=== PATIENT | female | born 1970 | race Caucasian/White ===

== ENCOUNTER 2024-06-01 19:04 | Emergency (ER) | payer SELFPAY ==
[~2024-06-01] VITALS: Ht 167.6 cm; Wt 83.2 kg
[~2024-06-01 19:04] MED LIST: MULT-1179 PO
[2024-06-01] MEDS: ondansetron 4mg rapidly disintigrating tab PO ONE (19:40)
[2024-06-01] MEDS: acetaminophen 325mg tablet PO ONE (19:45)
[2024-06-01 19:58] LABS: BASOPHILS % (AUTO) 0.2 % (0-1); EOSINOPHILS % (AUTO) 0.1 % (0-6); HEMATOCRIT 45.8 % (35.0-45.0); HEMOGLOBIN 15.7 g/dl (12.0-16.0); LYMPHOCYTES # (AUTO) 1.7 X10'3 (1.1-4.8); LYMPHOCYTES % (AUTO) 12.7 % (21-51); MEAN CORPUSCULAR HEMOGLOBIN 30.1 PG (27.0-31.0); MEAN CORPUSCULAR HGB CONC 34.3 g/dL (33.0-36.5); MEAN CORPUSCULAR VOLUME 87.9 FL (78-98); MEAN PLATELET VOLUME 7.1 FL (7.4-10.4); MONOCYTES # (AUTO) 0.4 X10'3 (0-0.9); MONOCYTES % (AUTO) 3.2 % (2-12); NEUTROPHILS # (AUTO) 11.2 X10'3 (1.8-7.7); NEUTROPHILS % (AUTO) 83.8 % (42-75); PLATELET COUNT 401 X10'3 (140-440); RED BLOOD COUNT 5.22 X10'6 (4.20-5.60); RED CELL DISTRIBUTION WIDTH 15.1 % (11.5-14.5); WHITE BLOOD COUNT 13.3 X10'3 (4.5-11.0)
[2024-06-01 20:22] LABS: ALANINE AMINOTRANSFERASE 25 U/L (12-78); ALBUMIN 4.5 G/DL (3.4-5.0); ALKALINE PHOSPHATASE 91 IU/L (46-116); ANION GAP 13 (8-16); ASPARTATE AMINO TRANSFERASE 18 U/L (10-37); BILIRUBIN,TOTAL 0.6 MG/DL (0.1-1.0); BLOOD UREA NITROGEN 13 MG/DL (7-18); BUN/CREATININE RATIO 12.7 (10.0-20.0); CHLORIDE 101 MMOL/L (99-107); CREATININE 1.02 MG/DL (0.40-0.90); GLUCOSE 166 MG/DL (70-104); LIPASE 41 U/L (16-77); POTASSIUM 3.7 MMOL/L (3.5-5.1); SODIUM 140 MMOL/L (135-145); TOTAL PROTEIN 9.2 G/DL (6.4-8.2); eCRCL 60 ML/MIN; eGFR 57 ML/MIN
[2024-06-01 23:46] LABS: APTT 27 SECONDS (22-32); PROTHROMBIN TIME 10.9 SECONDS (9.0-12.0)
[2024-06-01] MEDS: LORazepam 2 mg/ml vial IV ONE (23:52)
[2024-06-01] MEDS: normal saline 1000ml 1,000 ML IV ONE (23:52)
[2024-06-01] MEDS: ondansetron/PF 4mg/2ml inj IV ONE (23:52)
[2024-06-02] MEDS: niCARDipine-NS 40mg/200ml IVPB 200 ML IV SCH (00:31)
[2024-06-02] MEDS: HYDROmorphone 1 mg/ml syringe IV ONE (00:40)
[2024-06-02] MEDS: diphenhydrAMINE 50 mg/ml inj IV ONE (00:44)
[2024-06-02] MEDS: proCHLORperazine 10 MG/2 ml inj IV ONE (00:47)
[2024-06-02] MEDS ORDERED: iohexol 350MG/ML 100ml bottle IV ONE (00:52)
[2024-06-02 01:04] VITALS: BP 156/79; PULSE 131; RESP 17; O2SAT 94
[2024-06-02 01:35] VITALS: TEMP 98.1
[2024-06-02] MEDS ORDERED: levetiracetam-NACL1000mg/100ml 100 ML IV ONE (08:00)
== END 2024-06-02 01:15 | disposition short-term general hospital (02) ==
LOC: ER 19:05
DX: I61.8 Other nontraumatic intracerebral hemorrhage (principal); I16.1 Hypertensive emergency; Z79.899 Other long term (current) drug therapy; Z90.49 Acquired absence of other specified parts of digestive tract
CPT/HCPCS: 36415; 70450; 70496; 70498; 80053; 83690; 84484; 85025; 85610; 85730; 93005; 96361; 96365; 96375; 99291; J0780; J1171; J1200; J2060; J2405; J3490; J7030; Q9967; 99285; A4615